=== PATIENT | female | born 1975 | race Caucasian/White ===

== ENCOUNTER 2017-01-02 10:55 | Emergency (ER) | payer OTHER ==
--- NOTE | 2017-01-02 11:53 | EDPHY ---
H & P Stated Complaint: chin lac Time Seen by Provider: 01/02/17 11:52 HPI/ROS: HPI: This is a 41-year-old female who presents with Chief Complaint: Cut on chin Location: Chin Quality: Cut Duration: Prior to arrival Signs and Symptoms: + mild bleeding, no radiation, no numbness, no weakness, no tingling, no incontinence, no decreased range of motion, no loss of consciousness, no head injury, no neck pain Timing: Sudden Severity: [id number] Context: Patient reports that she was walking, tripped over her shoe laces and fell directly on the [place] hitting her chin. Immediate pain and bleeding controlled with direct pressure. Reports tetanus status is up-to-date. Denies loss of consciousness/head injury/neck pain. Modifying Factors: Direct pressure Comment: ROS: Constitutional: No fever, no chills, no weight loss Eyes: No blurred vision Respiratory: No shortness of breath, no cough Cardiovascular: No chest pain Gastrointestinal: No nausea, no vomiting no diarrhea Genitourinary: No dysuria Extremities: No myalgias Neurologic: No weakness, no numbness Skin: No rashes Hematologic: No bruising, no bleeding SOCIAL HISTORY: Source: Patient Exam Limitations: No limitations - Personal History LMP (Females 10-55): 8-14 Days Ago Current Tetanus/Diphtheria Vaccine: Yes Current Tetanus Diphtheria and Acellular Pertussis (TDAP): Yes Tetanus Vaccine Date: 10/08 - Medical/Surgical History Hx Asthma: No Hx Chronic Respiratory Disease: No Hx Diabetes: No Hx Cardiac Disease: No Hx Renal Disease: No Hx Cirrhosis: No Hx Alcoholism: No Hx HIV/AIDS: No Hx Splenectomy or Spleen Trauma: No Other PMH: Generally healthy. - Social History Smoking Status: Never smoked - Physical Exam Exam: CONSTITUTIONAL: Pleasant adult white female, awake and alert, no obvious distress HEENT: normocephalic, PERRL, EOMI. Tympanic membranes clear. Oropharynx clear, no TMJ joint pain, no dental injury; no exudate and moist pink mucosa. Airway patent. No lymphadenopathy. No meningismus. 3 cm superficial horizontal laceration on chin; no active bleeding. No lip laceration. Cardiovascular: Normal S1/S2, regular rate, regular rhythm, without murmur rub or gallop. PULMONARY/CHEST: Symmetrical and nontender. Clear to auscultation bilaterally Good air movement. No accessory muscle usage. ABDOMEN: Soft, nondistended, nontender, no rebound, no guarding, no peritoneal signs, no masses or organomegaly. No CVAT. EXTREMITIES: 2/2 pulses, no deformities, no clubbing, no cyanosis or edema. NEUROLOGICAL: no focal neuro deficits. GCS 15. SKIN: Warm and dry, no erythema. no rash. Good capillary refill. Constitutional: Initial Vital Signs Temperature (C) 36.9 C 01/02/17 11:07 Heart Rate 65 01/02/17 11:07 Respiratory Rate 16 01/02/17 11:07 Blood Pressure 100/66 01/02/17 11:07 O2 Sat (%) 95 01/02/17 11:07 O2 Delivery Mode Room Air Allergies/Adverse Reactions: No Known Allergies Allergy (Verified 08/23/11 00:37) Home Medications: Medication Instructions Recorded Cephalexin [Keflex] 500 mg PO TID #30 cap 08/23/11 No Medications [NO HOME 1 ea MISC 08/23/11 MEDICATIONS] Phenazopyridine HCl [Pyridium] 200 mg PO TID #6 tab 08/23/11 Vit27&Calcium/Iron/FA 1 each PO DAILY 12/31/15 [] Ibuprofen [Motrin (*)] 600 mg PO Q6 PRN #60 tab 01/02/16 oxyCODONE/APAP 5/325 [Percocet 1 - 2 tab PO Q4-6PRN PRN #30 tab 01/02/16 5/325 (*)] Medical Decision Making Procedures: Procedure: Laceration repair. Verbal consent was obtained from the patient. The simple deep laceration on the chin was anesthetized in the usual fashion. The wound was irrigated, draped and explored to its base with a gloved finger. There were no deep structures involved. No tendon injury was identified. The wound was repaired with #3; buried simple interrupted sutures and # 2 simple interrupted pattern exterior 5-0 PDS. Good hemostasis was achieved and patient tolerated procedure well. The procedure was performed by myself. ED Course/Re-evaluation: Tetanus up-to-date. Wound care and laceration repair LET applied; irrigated #3 Internal buried absorbable stitches and # 2 absorbable simple interrupted sutures; Steri-Strips placed. Written and verbal wound care instructions provided. No signs of neurovascular compromise/tenting of skin/compartment syndrome/ extremities and joints examined above and below area of concern and are neurovascularly intact/LOC/TMJ dysfunction. Differential Diagnosis: Differential diagnosis includes but is not limited to laceration, mandible fracture, TMJ dysfunction, dental injury. - Data Points Medications Given: Discontinued Medications Tetracaine/Epinephrine/Lidocaine (Let Gel Topical) 1 ea TP EDNOW ONE Stop: 01/02/17 11:58 Last Admin: 01/02/17 12:12 Dose: 1 ea Departure - Departure Disposition: Home, Routine, Self-Care Clinical Impression: Laceration of chin without complication Qualifiers: Encounter type: initial encounter Qualified Code(s): S01.81XA - Laceration without foreign body of other part of head, initial encounter Condition: Good Instructions: Care For Your Absorbable Stitches (ED), Facial Laceration (ED) Additional Instructions: Allow Steri-Strips to fall off on their own in a few days. After 48 hours, you may wash the site daily with mild soap and water; then pat dry. Take ibuprofen 600-800 mg every 6-8 hours with food as needed for pain and inflammation. Apply ice for 30 minutes at a time; 2-3 times per day for the next 1-2 days. Sutures placed today are absorbable and will not need to be removed as they will dissolve on their own. Return immediately to the ER if signs and symptoms of infection including warmth , redness, purulent discharge. Referrals: [place] [Other] - As per Instructions [facility],. [Clinic] - As per Instructions
[2017-01-02] MEDS ORDERED: LET GEL TOPICAL 1 EA SYR TP ONE (11:57)
[2017-01-02 13:11] VITALS: BP 118/68; PULSE 70; RESP 14; TEMP 97.9; O2SAT 98
== END 2017-01-02 13:10 | disposition home or self-care (01) ==
PROC: 0HQ1XZZ Repair Face Skin, External Approach (ICD-10-PCS; principal; 2017-01-02)
DX: S01.81XA Laceration without foreign body of other part of head, initial encounter (principal); W01.198A Fall on same level from slipping, tripping and stumbling with subsequent striking against other object, initial encounter; Y99.8 Other external cause status; Y93.01 Activity, walking, marching and hiking

== ENCOUNTER → 2018-01-03 | Outpatient (CLI) | payer OTHER | LOC: FIMAGING 15:23 | PROVIDERS: ATTEND Obstetrics & Gynecology | DX: Z12.31 Encounter for screening mammogram for malignant neoplasm of breast (principal) ==

== ENCOUNTER → 2018-07-04 | Outpatient (CLI) | payer OTHER | LOC: FIMAGING 13:22 | PROVIDERS: ATTEND Obstetrics & Gynecology | DX: O09.522 Supervision of elderly multigravida, second trimester (principal); D68.2 Hereditary deficiency of other clotting factors; Z3A.19 19 weeks gestation of pregnancy ==

== ENCOUNTER → 2018-10-05 | Outpatient (CLI) | payer OTHER | LOC: FIMAGING 10:31 ==